=== PATIENT | female | born 1945 | race Two or more races ===

== ENCOUNTER → 2019-07-12 | Day surgery (SDC) | payer OTHER ==
[~2019-07-12] MED LIST: DIOVAN40 MG PO; DORZOLAMIDE HCL10 ML OPHT; PRAVASTATIN SOD40 MG PO; SPIRIVA RESPIMAT4 G1 IH; SYNTHROID75 MCG PO; VERELAN180 MG PO
== END | disposition home or self-care (01) ==
LOC: ADM 07-09 08:00 → CIR.AMB 06:05
DX: C50.212 Malignant neoplasm of upper-inner quadrant of left female breast (principal)

== ENCOUNTER 2022-10-05 07:46 | Outpatient (CLI) | payer OTHER | END 2022-10-05 07:57 | disposition home or self-care (01) | LOC: TOM 07:46 | PROVIDERS: ATTEND Internal Medicine Gastroenterology | DX: K56.609 Unspecified intestinal obstruction, unspecified as to partial versus complete obstruction (principal); Z86.010 Personal history of colon polyps ==